=== PATIENT | male | born 1940 | race Caucasian/White ===

== ENCOUNTER → 2017-02-18 | Outpatient (CLI) | payer OTHER ==
[~2017-02-18] MED LIST: ELIQUIS5 MG PO; LEVOTHYROXINE100 MCG PO; MULTI-DAY1 TAB PO; OMEGA-3 1,0001 EACH PO; ST. JOHN'S WOR150 M1 PO; SUPER B COMPLEX PO; SYNTHROID112 MCG PO; VITAMIN E400 UNI1 PO; XANAX2 MG PO
--- NOTE | ~2017-02-18 | US85 ---
[facility] A Service of [facility] RADIOLOGY TEXT RESULTS PATIENT: JETHRO THAPA LOCATION: CNIV : 44 UNIT #: [id number] AGE: [address]: Anirudh Lucio MD SEX: M ORDER DR: [id number] [facility] [address] [place], [place] [address] [id number] O MR#: [id number] Acc #: [id number] NAME: JETHRO THAPA : 1940 SEX: M STUDY DATE/TIME: 02/18/2017 10:59 UNIT: CNIV ROOM: STUDY DESCRIPTION: LE Veins Unilat or Ltd Stdy Attending Physician: Anirudh Lucio M.D. Referring Physician: Anirudh Lucio M.D. Ordering Physician: Anirudh Lucio M.D. Primary Care Physician: Raul Burris M.D. MEDICAL IMAGING REPORT This report is preliminary unless electronic signature is present EXAM Right lower extremity venous Doppler HISTORY Prior history of a right lower extremity DVT and is currently on Eliquis. Patient has had intermittent swelling in the right lower extremity. FINDINGS On the prior examination, this patient had an occlusive thrombus seen within the common femoral, superficial femoral, popliteal, anterior tibial, posterior tibial and peroneal veins. On today's exam, the common femoral is patent and compressible and there is now flow seen within the superficial, femoral, popliteal and the anterior tibial veins. The posterior tibial and peroneal veins remain non-compressible, likely reflecting chronic DVT. Occlusive thrombus is still present within the posterior tibial and peroneal veins. There is no evidence of SVT. IMPRESSION This patient has suspected chronic DVT involving the superficial, femoral, popliteal and anterior tibial vessels with occlusive thrombus still persisting within the posterior tibial and peroneal veins. Patient's right common femoral vein is now patent and compressible. Dictated by... Diana Acuna M.D. THIS IS AN ELECTRONICALLY VERIFIED REPORT Diana Acuna M.D. at 02/19/2017 4:58 PM AFF/pcl TD: 02/18/2017 23:32 [facility] A Service of [facility] RADIOLOGY TEXT RESULTS PATIENT: JETHRO THAPA LOCATION: [facility] #: [id number] : 44 UNIT #: [id number] AGE: [address]: Anirudh Lucio MD SEX: M ORDER DR: JOB #: [id number] MEDICAL IMAGING REPORT Page 1 of 1 COPY
== END | disposition home or self-care (01) ==
LOC: CNIV 10:27
DX: I82.491 Acute embolism and thrombosis of other specified deep vein of right lower extremity (principal); I82.220 Acute embolism and thrombosis of inferior vena cava
CPT/HCPCS: 93971